=== PATIENT | male | born 1995 | race American Indian/Alaskan Native ===

== ENCOUNTER 2017-11-17 11:18 | Emergency (ER) | payer OTHER ==
[2017-11-17 11:35] VITALS: BP 151/78
[2017-11-17] MEDS ORDERED: TYLENOL PO ONE (14:15)
--- NOTE | 2017-11-17 14:15 | Emergency Department Report ---
Chief Complaint: Medical Clearance Stated Complaint: BLOODY STOOLS Time Seen by Provider: 11/17/17 13:36 - HPI History of Present Illness: The patient is a 21-year-old male who presents for evaluation of rectal pain. She reports 2 weeks of intermittent rectal pain, mild in severity, burning and stinging in quality, exacerbated with defecation. The patient denies fever, chills, night sweats, abdominal pain, diarrhea, blood in the stool, dark tarry stool, dysuria, hematuria, flank pain, genital discharge, inability to pass flatus. - Exam Vital Signs: Vital Signs 11/17/17 11:32 Temperature 98.1 F Pulse Rate 79 Respiratory 18 Rate Blood Pressure 151/78 O2 Sat by Pulse 100 Oximetry MSE screening note: Focused history and physical exam performed. Due to findings the following was ordered: ED Disposition for MSE Condition: Stable Referrals: PRIMARY CARE, [Primary Care Provider] - 3-5 Days
--- NOTE | 2017-11-17 15:11 | Emergency Department Report ---
HPI - General Chief Complaint: Medical Clearance Time Seen by Provider: 11/17/17 13:36 - HPI HPI: The patient is a 21-year-old male who presents for evaluation of anal pain. The patient reports anal pain for the past 2 weeks, stinging and burning in quality, worse with defecation, moderate in severity. He admits to constipation. The patient denies fever, chills, night sweats, diarrhea, blood in the stool, dark tarry stool, dysuria, hematuria, flank pain, genital discharge, inability to pass flatus. ED Past Medical Hx - Past Medical History Previous Medical History?: No - Surgical History Past Surgical History?: No - Social History Smoking Status: Never Smoker Substance Use Type: None - Medications Home Medications: Home Medications Medication Instructions Recorded Confirmed Last Taken Type Docusate Sodium [Colace] 100 mg PO BID #20 capsule 11/17/17 Unknown Rx Sulfamethoxazole/Trimethoprim 1 each PO BID #7 tablet 11/17/17 Unknown Rx [Bactrim DS TAB] ED Review of Systems ROS: Stated complaint: BLOODY STOOLS Other details as noted in HPI Constitutional: denies: fever ENT: denies: throat or neck pain Respiratory: denies: cough, shortness of breath Cardiovascular: denies: chest pain Endocrine: denies unexplained weight loss or gain Gastrointestinal: reports anal pain denies: abdominal pain, nausea Genitourinary: denies: dysuria Musculoskeletal: denies: leg swelling Skin: denies: rash Neurological: denies: headache Hematological/Lymphatic: denies: easy bleeding or easy bruising Psych: denies sadness or hopelessness Physical Exam - Physical Exam Vital Signs: Vital Signs 11/17/17 11:32 Temperature 98.1 F Pulse Rate 79 Respiratory 18 Rate Blood Pressure 151/78 O2 Sat by Pulse 100 Oximetry Physical Exam: General: well-nourished, well-developed, no acute distress Head: Normocephalic, atraumatic Eyes: normal sclera ENT: Mucous membranes are pink and moist Neck: trachea midline, neck supple, No neck stiffness, no cervical adenopathy Respiratory: Breath sounds equal bilaterally, no wheezing, rales, or rhonchi Cardio: S1 and S2 present, no murmurs, rubs, gallops, capillary refill is brisk Abdomen: Normoactive bowel sounds, soft abdomen, no tenderness : Midline 12 o'clock position anal fissure present, no fluctuance or hemorrhoids, rectal tone intact, no active bleeding Musc: No pitting edema Skin: No rash Neuro: no facial drooping, normal speech Psych: Normal affect ED Course Vital Signs 11/17/17 11:32 Temperature 98.1 F Pulse Rate 79 Respiratory 18 Rate Blood Pressure 151/78 O2 Sat by Pulse 100 Oximetry ED Medical Decision Making - Medical Decision Making The patient was seen and examined by myself. The patient is placed on a monitoring analyst and continuous pulse ox. On initial evaluation, the patient was found to be in no distress. Evaluation orders were placed. Exam revealed anesthesia. The patient given pain medicine. The patient is given a prescription for stool softeners. The patient was reevaluated and reported that their symptoms were markedly improved. The patient is stable for discharge with outpatient follow-up. The patient is given follow-up and return instructions. The patient expressed understanding and agreed with the plan. The patient is discharged in stable condition. Critical care attestation.: If time is entered above; I have spent that time in minutes in the direct care of this critically ill patient, excluding procedure time. ED Disposition Clinical Impression: Anal pain, Anal fissure Tear of anal skin Qualifiers: Encounter type: initial encounter Qualified Code(s): S31.831A - Laceration without foreign body of anus, initial encounter Disposition: TO HOME OR SELFCARE Is pt being admited?: No Does the pt Need Aspirin: No Condition: Stable Instructions: Anal Fissure (ED), Constipation (ED), High Fiber Diet (ED) Referrals: [facility] [Outside] - 3-5 Days SONU WINTER DO [Staff Physician] - 3-5 Days Time of Disposition: 15:06
== END 2017-11-17 15:42 | disposition home or self-care (01) ==
LOC: ED 11:18
DX: K60.2 Anal fissure, unspecified (principal)
CPT/HCPCS: 99283